=== PATIENT | female | born 1965 | race Caucasian/White ===

== ENCOUNTER → 2020-07-31 | Outpatient (CLI) | payer OTHER, MEDICAID ==
[~2020-07-31] MED LIST: AURALGAN EAR DR14 ML; AZITHROMYCIN PO; BACLOFEN 10 MG10 MG PO; BUSPAR 5 MG TABL5 M1 PO; CLONAZEPAM 1 MG1 M1 PO; CYMBALTA30 MG PO; DIAZEPAM 5 MG5 M1 PO; GABAPENTIN100 MG PO; GYNODIOL0.5 MG PO; HYDROCODON-ACE1 EAC8 PO; INDOCIN SR75 MG PO; MEDROLDOSEPACK PO; NORTRIPTYLINE H25 M3 PO; PERCOCET 10-321 EACH; PERCOCET 5-3251 EACH PO; PRIMIDONE50 MG PO; PROPRANOLOL 8080 MG PO; SUPER B COMPLE1 EAC3 PO; VOLTAREN GEL 1100 G1 TOP
== END ==
LOC: M.RAD 16:28
PROVIDERS: ATTEND Family Medicine
DX: M47.22 Other spondylosis with radiculopathy, cervical region (principal); M43.22 Fusion of spine, cervical region; Z91.81 History of falling